=== PATIENT | male | born 1975 | race Caucasian/White ===

== ENCOUNTER 2019-11-18 17:38 | Inpatient (IN) | payer SELFPAY ==
[2019-11-18] VITALS (7 sets, daily range): BP systolic 99–120; BP diastolic 60–76; PULSE 76–106; TEMP 98.5
[2019-11-18] MEDS ORDERED: ALLEGRA-D TABLE1 TAB PO (19:03)
--- NOTE | 2019-11-18 19:50 | NUR ---
Pt arrived from [place], report from SUSANA Mendoza. Pt consent was signed, and taken for surgery. Report was given to SUSANA Britt.
[2019-11-19] VITALS (7 sets, daily range): BP systolic 93–126; BP diastolic 49–74; PULSE 62–94; TEMP 97.4–98.3
--- NOTE | 2019-11-19 02:18 | NUR ---
PATIENT DECLINING PAIN MEDICATION AT THIS TIME
--- NOTE | 2019-11-19 05:10 | NUR ---
PATIENT RETURNED FROM SURGERY AND IT WAS REPORTED HE HAD A LAP APPY WITH A PARTIAL BURST. PATIENT WAS REPORTING MINIMAL PAIN AND WAS ALERT AND ORIENTATED. PAIN MEDICATION WAS GIVEN TO PATIENT TO STAY ON TOP OF THE PAIN AND NOT GET UNDERNEATH OF IT. PATIENT HAS FLUIDS RUNNING INBETWEEN ANTIBIOTICS ARE BEING HUNG. PATIENT IS ABLE TO GET UP AND GO THE BATHROOM BUT ALERTS SOMEONE BEFORE HE GOES. HIS X3 LAP SITES ARE COVERED IN [place]. DENIES ANY OTHER NEEDS AT THIS TIME. WILL REPORT OFF TO DAY SHIFT UPON THEIR ARRIVAL
[2019-11-19 07:17] LABS: HEMATOCRIT 39.5 % (42.0-52.0); HEMOGLOBIN 12.9 g/dl (13.5-18.0); MEAN CELL VOLUME 87 fl (80.0-100.0); MEAN CORPUSCULAR HEMOGLOBIN 29 pg (27.0-31.0); MEAN CORPUSCULAR HGB CONC 33 g/dl (33.0-37.0); MEAN PLATELET VOLUME 9.7 fl (7.4-10.4); PLATELET COUNT 367 K/mm3 (130-400); RED BLOOD COUNT 4.52 M/mm3 (4.20-5.60); REDCELL DISTRIBUTION WIDTH-CV 13.9 % (11.5-14.5)
--- NOTE | 2019-11-19 07:25 | NUR ---
Assessment completed, alert/oriented, vital signs stable/ afebrile, patient still having some moderate discomfort/Toradol IV given at this time, abdomen is soft and BS +, he is eating and drinking without issues, will INT IV site after abx infuses, heart RRR, lungs CTA, patient WBC is 23.2 today/ will notify , denies other needs at this time
[2019-11-19 07:26] LABS: CALCIUM 9.1 mg/dL (8.4-10.2); CREATININE, serum 0.93 (0.66-1.25)
[2019-11-19 08:15] LABS: BAND 2 % (0-10); LYMPHOCYTE 2 % (20.0-51.0); NEUTROPHILS 93 % (42.0-75.2)
[2019-11-19 08:16] LABS: PLATELET ESTIMATE NORMAL (NORMAL)
--- NOTE | 2019-11-19 10:30 | NUR ---
MELLY met with the patient to discuss discharge plan. The patient lives alone in [place]. He reports independence with ADLs and does not have any DME. The patient does not have a PCP. He states that he used to go to the [facility], but it has been years since he has went there. He was interested in a list of the different providers in [place]. MELLY provided his with this list and their contact information. The patient receives his medications at [facility] and he reports no difficulties obtaining his meds. The patient is self pay. Financial Counseling has been consulted. The patient does not have advanced directives. He states that he has three children. Two of them are over the age of eighteen: Ryan and Ritu. He states his parents are his emergency contacts: Jean (ph#[phone]), Regina (ph#[phone]). The patient plans to return home upon discharge, with his son providing transport. No additional needs at this time.
--- NOTE | 2019-11-19 11:57 | NUR ---
First visit from the farm boss. No needs right now.
[2019-11-20 05:00] VITALS: BP 112/65; PULSE 76; TEMP 98
--- NOTE | 2019-11-20 05:17 | NUR ---
PATIENT HAS RESTED THROUGH THE NIGHT WITH NO COMPLAINTS. PRN PAIN MEDICATION WAS GIVEN TO PATIENT X2 DOSES TO HELP WITH SOME PAIN IN HIS SURGICAL SITES. PATIENT WAS UP ONCE TO WALK IN THE HALLS X1 DURING THE SHIFT. PATIENT DENIES ANY OTHER NEEDS AT THIS TIME. WILL UPDATE DAY SHIFT WHEN THEY ARRIVE
[2019-11-20 06:54] LABS: BASO % 0.2 % (0.0-2.0); EOS # 0.1 (0.0-0.7); EOS % 0.4 % (0-4.0); GRAN % 84.5 % (42.2-75.2); HEMOGLOBIN 11.2 g/dl (13.5-18.0); LYMPH # 1.7 (1.2-3.4); LYMPH % 8.4 % (20.0-51.0); MEAN CELL VOLUME 86 fl (80.0-100.0); MEAN CORPUSCULAR HEMOGLOBIN 28 pg (27.0-31.0); MEAN CORPUSCULAR HGB CONC 33 g/dl (33.0-37.0); MEAN PLATELET VOLUME 9.2 fl (7.4-10.4); MONO # 1.2 (0.1-0.6); MONO % 5.9 % (1.7-9.3); PLATELET COUNT 359 K/mm3 (130-400); RED BLOOD COUNT 3.94 M/mm3 (4.20-5.60)
--- NOTE | 2019-11-20 07:47 | NUR ---
Assessment completed, alert/oriented, vital signs stable/ afebrile, reports pain is worse this morning 4-510 especially around his left lower incision site, no redness or drainage noted at or around lap incision sites, abd is soft and BS +, tolerating PO intake well, WBC down slightly to to 20 this morning and again NO fevers, heart RRR, lungs CTA, no resp.difficulty, patient is sitting up in bed and breakfast just arrived
[2019-11-20 07:59] VITALS: BP 106/60; PULSE 67; TEMP 98.4
[2019-11-20] MEDS ORDERED: CIPRO 500MG TA500 MG PO (11:52)
[2019-11-20] MEDS ORDERED: NORCO 325 MG-51 TAB PO ×2 (11:52→11:53)
[2019-11-20] MEDS ORDERED: FLAGYL500 MG PO (11:52)
[2019-11-20 12:13] VITALS: BP 114/71; PULSE 67; TEMP 98.1
--- NOTE | 2019-11-20 13:22 | NUR ---
karson discharging , instructed on meds and follow up, incision care, IV removed, leaving with his son, I escorted them out
== END 2019-11-20 13:22 | disposition home or self-care (01) | DRG 340 ==
LOC: MEDICAL 17:38 → EDBD 18:48 → MEDICAL 18:48
PROVIDERS: ADMIT Surgery
PROC: 0DTJ4ZZ Resection of Appendix, Percutaneous Endoscopic Approach (ICD-10-PCS; principal; 2019-11-18 19:45)
DX: K35.32 Acute appendicitis with perforation, localized peritonitis, and gangrene, without abscess (principal); Z88.0 Allergy status to penicillin; J45.909 Unspecified asthma, uncomplicated
CPT/HCPCS: OP; G0379; J0744; J1100; J1170; J1885; J2405; J2704; J2710; J3010; J7042